=== PATIENT | female | born 1985 | race American Indian/Alaskan Native ===

== ENCOUNTER 2019-11-02 23:37 | Emergency (ER) | payer MEDICAID ==
--- NOTE | 2019-11-03 00:25 | EDM.PDOC ---
ED HPI GENERAL MEDICAL PROBLEM - General Chief Complaint: Lower Extremity Injury/Pain Stated Complaint: LEFT ANKLE BLEEDING Time Seen by Provider: 11/03/19 00:08 Source of Information: Reports: Patient, RN History Limitations: Reports: No Limitations - History of Present Illness INITIAL COMMENTS - FREE TEXT/NARRATIVE: Rosaura is a 34 yo female patient that presents to the ED for c/o a bleeding varicose vein on her left medial leg just superior to her tibial malleolus. She states that she was scratching a mosquito bite when it started bleeding. Bleeding is stopped initially but as she showed nursing staff how it happened it started to rebleed. direct pressure to the vein was applied and bleeding was again stopped. Is not on an anticoagulant. 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: Musculoskeletal History: Reports: Back Pain, Chronic, Fracture Other Musculoskeletal History: fx finger Neurological History: Reports: Brain Injury - Past Surgical History HEENT Surgical History: Reports: Tonsillectomy Social & Family History - Tobacco Use Smoking Status *Q: Current Every Day Smoker Years of Tobacco use: 15 Packs/Tins Daily: 0.2 - Caffeine Use Caffeine Use: Reports: Coffee - Recreational Drug Use Recreational Drug Use: No Review of Systems - Review of Systems Review Of Systems: See Below Constitutional: Reports: No Symptoms Eyes: Reports: No Symptoms Ears: Reports: No Symptoms Nose: Reports: No Symptoms Mouth/Throat: Reports: No Symptoms Respiratory: Reports: No Symptoms Cardiovascular: Reports: No Symptoms GI/Abdominal: Reports: No Symptoms Genitourinary: Reports: No Symptoms Musculoskeletal: Reports: No Symptoms Skin: Reports: Other (varicose veins) Neurological: Reports: No Symptoms Psychiatric: Reports: Anxiety (mild ) ED EXAM, GENERAL - Physical Exam Exam: See Below Exam Limited By: No Limitations General Appearance: Alert, Mild Distress (worried that she lost a lot of blood) Respiratory/Chest: No Respiratory Distress Cardiovascular: Normal Peripheral Pulses, No Edema Peripheral Pulses: 2+: Dorsalis Pedis (L) Extremities: Normal Range of Motion, Non-Tender, No Pedal Edema, Normal Capillary Refill, Other (small varicose veins with areas of bulging to bilat lower extremities/ ankles. ) Neurological: Alert, Oriented, No Motor/Sensory Deficits Psychiatric: Anxious (mildly) Skin Exam: Warm, Dry, Other (multiple varicose veins present of lower extremities) Lymphatic: No Adenopathy Course - Vital Signs Last Recorded V/S: Last Vital Signs Temp 98.1 F 11/03/19 00:00 Pulse 109 H 11/03/19 00:00 Resp 14 11/03/19 00:00 BP 147/96 H 11/03/19 00:00 Pulse Ox 96 11/03/19 00:00 Departure - Departure Time of Disposition: 00:21 Disposition: Home, Self-Care 01 Clinical Impression: Bleeding from varicose veins of left lower extremity - Discharge Information *PRESCRIPTION DRUG MONITORING PROGRAM REVIEWED*: No *COPY OF PRESCRIPTION DRUG MONITORING REPORT IN PATIENT REMA: No Instructions: Varicose Veins Referrals: PCP,None [Primary Care Provider] - Forms: ED Department Discharge Additional Instructions: Try to not scratch your varicose veins anymore. Keep the pressure dressing on for next 24 hours. Loosen the dressing if your toes start to turn bluish or tingling. If they should start to bleed again, hold direct pressure on them. You have been placed on the [facility] follow-up list with Dr Thayer to discuss options for your varicose veins. Call or return to ED if you cannot get the bleeding to stop or any other concerns. Sepsis Event Note (ED) - Evaluation Sepsis Screening Result: No Definite Risk - Focused Exam Vital Signs: Vital Signs Temp Pulse Resp BP Pulse Ox 11/03/19 00:00 98.1 F 109 H 14 147/96 H 96 - Assessment/Plan Plan: Bleeding is stopped and patient reassured. a pressure dressing was applied to left ankle. Referral made to Dr Thayer for discussion on options for treatment of varicose veins. Pt is agreeable to plan. Discharged to home.
== END 2019-11-03 00:34 | disposition home or self-care (01) ==
LOC: JP.ED 23:37
DX: I83.892 Varicose veins of left lower extremity with other complications (principal); F17.210 Nicotine dependence, cigarettes, uncomplicated
CPT/HCPCS: 99283